=== PATIENT | female | born 1995 | race Caucasian/White ===

== ENCOUNTER 2019-01-12 00:18 | Emergency (ER) | payer OTHER, SELFPAY ==
[2019-01-12] VITALS (7 sets, daily range): BP systolic 138–148; BP diastolic 80–83; PULSE 80–84; RESP 16–18; TEMP 36.2; O2SAT 97–98; BMI 43.5
[2019-01-12 01:52] LABS: Absolute Lymphocyte Count 3.84 X10^3/ul (0.83-4.51); Absolute Neutrophil Count 5.3 X10^3/uL (2.0-7.7); Basophil# 0.05 X10^3/uL; Basophil% 0.5 % (0-1); Eosinophil# 0.44 X10^3/uL; Eosinophils% 4.3 % (0-5); Hematocrit 41.7 % (37-47); Hemoglobin 13.8 g/dl (12.0-15.0); Lymphocyte # 3.84 X10^3/ul (4.0); Lymphocyte % 37.8 % (19-41); Mean Corp Hgb Conc 33.1 g/gl (32-36); Mean Corpuscular Hgb 28.5 pg (27.0-32.0); Mean Corpuscular Volume 86.2 fL (81-99); Mean Platelet Vol. 10.4 fl (6.2-12.0); Monocyte# 0.57 X10^3/uL; Monocyte% 5.6 % (0-10); Neutrophil # 5.25 X10^3/uL (2.7-7.7); Neutrophil % 51.6 % (47-70); Platelet Count 378 K/mm3 (150-450); RBC Distribution Width CV 13.7 % (11.6-14.6); RBC Distribution Width SD 43.5 fl (35.1-43.9); Red Blood Count 4.84 M/mm3 (4.2-5.4); White Blood Count 10.2 K/mm3 (4.4-11.0)
[2019-01-12 01:53] LABS: POSITIVE COUNT NO; POSITIVE DIFFERENTIAL NO; POSITIVE MORPHOLOGY NO
[2019-01-12 02:03] LABS: Anion Gap 6 (5-15); BUN 19 mg/dL (7-18); BUN/Creat Ratio 20.2 RATIO (10-20); Calcium,Total 9.7 mg/dL (8.5-10.1); Chloride 103 mmol/L (98-107); Creatinine, Serum 0.94 mg/dL (0.55-1.02); EST Glomerular Filtration Rate 80 mL/min (>60); Est Glom Filt Rate - Afr Amer 97 mL/min (>60); Estimated Creatinine Clearance 88.63 ml/min; Glucose 89 mg/dL (74-106); Potassium 3.6 mmol/L (3.5-5.1); Sodium Level 137 mmol/L (136-145)
--- NOTE | 2019-01-12 02:03 | CT_ITS ---
HISTORY: HEADACHE, DIZZINESS TECHNIQUE: Multiple axial images were obtained of the brain without intravenous contrast. A radiation dose optimization technique was used for this scan. COMPARISON: None FINDINGS: # of images incl. paperwork: 242 Visualized portions of the paranasal sinuses and mastoid air cells are free of disease. Brain volume is normal. Chavez-white differentiation is preserved. No hydrocephalus. No acute ischemia. No acute intracranial hemorrhage. CT/Brain/Head without Contrast IMPRESSION: Normal. ASPECT 10. Individualized dose optimization techniques were used for this CT. at 0340 Reported and signed by: Ady Valenzuela MD Electronically Signed: Ady Valenzuela MD at 3:39 EDT Tel , Service support ,
[2019-01-12 02:08] LABS: Amphetamine Urine VISTA NEGATIVE (<1000 ng/mL); Barbiturate Urine VISTA NEGATIVE (< 200 ng/mL); Benzodiazepine Urine VISTA NEGATIVE (< 200 ng/mL); Cocaine Urine VISTA NEGATIVE (< 300 ng/mL); Ecstacy Urine VISTA NEGATIVE (< 500 ng/mL); Methadone Urine VISTA NEGATIVE (< 300 ng/mL); PCP Urine VISTA NEGATIVE (< 25 ng/mL); THC Urine VISTA NEGATIVE (< 50 ng/mL); Vista UDS pH Range 5
[2019-01-12 02:40] LABS: Internal QC Validated? YES +Cl - CLEAR BKGD; Pregnancy, Serum, hCG Quali. NEGATIVE Negative
--- NOTE | 2019-01-12 03:24 | ED.RN ---
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
--- NOTE | 2019-01-12 04:36 | ED.DCSUM_ITS ---
- ER Visit Summary Date of Service: 01/12/19 Chief Complaint: Suicidal ideation History of Present Illness: The patient is a 23 F who presents with suicidal ideation. She states that she had suicidal thoughts today. No plan. No specific exacerbating factors. She also complains of headache for a month and states that a prior CAT scan showed a spot on her brain. Physical Examination: Afebrile vitals unremarkable Moist mucous membrane Heart regular rate and rhythm Lungs clear Abdomen soft Alert and oriented Blunt affect she endorses suicidal thoughts without plan Test Results: CBC BMP unremarkable. negative. Tox and alcohol normal. CT head normal. Emergency Department Course and Treatment: Patient was evaluated by crisis who felt that she was appropriate for discharge with a safety plan and will follow up with her closely as an outpatient. Treatment Plan: [] Disposition: Discharge Impression: Suicidal ideation This note was generated with [employer] dictation software. It may contain incorrect words, spelling, and punctuation that were not noted in review of the chart prior to signing ED Disposition - Plan for ED Patient: Referrals: oJan Harry MD [Primary Care Provider] -
--- NOTE | 2019-01-12 04:38 | ED.DEP ---
ED Disposition - Plan for ED Patient: Instructions: Warning Signs of Suicide and What You Can Do, Recognizing Suicide Warning Signs in Yourself Referrals: Joan Harry MD [Primary Care Provider] - Counseling,Center [GROUP OF PHYSICIANS] -
--- NOTE | 2019-01-12 05:12 | ED.RN ---
PT SIGNED A SAFETY PLAN WITH MD CLARITA AWARE AND IS OK WITH DISCHARGING THE PT.
== END 2019-01-12 05:13 | disposition home or self-care (01) ==
LOC: ED 02:37
PROVIDERS: Emergency Provider Emergency Medicine; Family Provider Pediatrics; PCP Pediatrics
DX: R45.851 Suicidal ideations (principal); R51 Headache; F32.9 Major depressive disorder, single episode, unspecified; F41.9 Anxiety disorder, unspecified; E03.9 Hypothyroidism, unspecified; Z79.899 Other long term (current) drug therapy
CPT/HCPCS: 70450; 80048; 80307; 80320; 84703; 85025; 99283; G0480

== ENCOUNTER 2020-10-19 13:34 | Emergency (ER) | payer OTHER, SELFPAY ==
[2019-01-12 00:19] VITALS: BMI 43.5
[2020-10-19 13:36] VITALS: BP 149/82; PULSE 97; RESP 18; TEMP 36.4; O2SAT 98; BMI 47.2
--- NOTE | 2020-10-19 14:13 | ED.VIS.GI ---
History of Present Illness Chief Complaint: Abd Pain Informant: Patient - Abdominal Pain/Flank Pain Onset: Today Quality: Cramping - Nausea/Vomiting/Emesis GI Symptom: Nausea. Negative for: Vomiting - Diarrhea/Melena/Hematochezia GI Symptom: Diarrhea Narrative: Is a 24-year-old female with history of GERD, hypothyroid internal hemorrhoids and depression presenting with abdominal pain, nausea and diarrhea. Patient states around 1 AM she woke up with pain in her stomach. Patient points to her entire upper abdomen. She states the pain is worse when she tries to move and better at rest. She feels lightheaded from the pain when it is severe. She developed nausea is had 13 episodes of diarrhea. She states during one episode she did see some blood mixed in with her stool. States is bright red. No clots of blood noted. She took her daily medications but nothing else today. She states she has not eaten anything because when she eats drinks she has diarrhea patient states she never anything this bad before. She notes that she ate [employer] and [employer] food yesterday. Patient Nuys any radiation of pain. She denies any fever or chills. She denies any chest pain, shortness of breath or difficulty breathing. No sick contacts. Her last menstrual period was 1 week ago and she states she is not concerned for . No she has a follow-up appointment with her GI doctor in 1 week. Earlier this year she had EGD for concern for bleeding ulcer. She states there was no bleeding ulcer but there was some irritation on the scope. Past Medical History - Allergies and Home Meds Allergies/Adverse Reactions: Allergies No Known Allergies Allergy (Verified 01/12/19 00:23) Primary Care Physician: Joan Harry MD [NON-STAFF] - Past Medical History: - - Depression, hypothyroid, GERD Surgical History: noncontributory, - - EGD, wisdom tooth extraction x2, right carpal tunnel release, left Achilles tendon repair Smoking Status: Never smoker Review of Systems General: Denies: Chills, Fever, Sweats Eyes: Denies: Visual changes - bilaterally, Diplopia ENT: Denies: Rhinorrhea, Sore throat Cardiovascular: Denies: Chest pain, Palpitations Respiratory: Denies: Dyspnea, Cough, Dyspnea on exertion Gastrointestinal: Reports: Abdominal pain, Nausea, Diarrhea, Hematochezia. Denies: Vomiting, Melena Genitourinary: Denies: Dysuria, Hematuria, Frequency Musculoskeletal: Denies: Back pain, Extremity Pain Skin: Denies: Rash, Wounds Neurological: Denies: Headache, Weakness, Numbness Physical Exam Vital Signs/Narrative: Vital Signs Temp Pulse Resp BP Pulse Ox 10/19/20 13:36 97.5 F L 97 18 149/82 H 98 Inital Vital Signs reviewed: Yes General: Well nourished, Well developed, Obese, No Acute Distress Head: Normocephalic, Atraumatic Eyes: Perrl, EOMI ENT: No rhinorrhea, Dry mucous membranes Neck: Supple, Nontender Cardiovascular: Regular rate, Regular rhythm, No murmurs Respiratory: No distress, CTA bilaterally, Chest nontender Abdomen: Soft, Nontender, Nondistended, Hyperactive bowel sounds, - - No pain at McBurney's point. Negative for: Guarding, Rebound tenderness, Adames's sign Back: Nontender, Normal Inspection Extremities: Nontender, No edema Skin: Normal color, No rash Neurological: Alert, Oriented x3, Cranial nerves II-XII grossly intact, Normal Strength, Normal Sensation Psychological: Normal affect, Normal Mood Diagnostic/Tx/Re-eval Laboratory Data 10/19/20 10/19/20 10/19/20 13:46 13:46 14:28 WBC 6.3 RBC 5.10 Hgb 14.2 Hct 43.7 MCV 85.7 MCH 27.8 MCHC 32.5 RDW Std Deviation 41.6 RDW Coeff of Ry 13.4 Plt Count 411 MPV 9.9 Immature Gran % (Auto) 0.600 Neut % (Auto) 53.9 Lymph % (Auto) 33.9 Williams % (Auto) 7.2 Eos % (Auto) 3.8 Baso % (Auto) 0.6 Absolute Neuts (auto) 3.4 Absolute Lymphs (auto) 2.13 Nucleated RBC % 0 Sodium 137 Potassium 3.9 Chloride 105 Carbon Dioxide 25.0 Anion Gap 7 BUN 9 Creatinine 0.79 Estim Creat Clear Calc 108.62 Est GFR (MDRD) Af Amer 116 Est GFR (MDRD) Non-Af 96 BUN/Creatinine Ratio 11.4 Glucose 113 H Lactic Acid Calcium 9.3 Total Bilirubin 0.30 Direct Bilirubin 0.09 AST 23 ALT 42 Alkaline Phosphatase 75 Total Protein 8.3 H Albumin 3.8 Globulin 4.5 H Lipase 60 L Urine Color Yellow Urine Clarity Clear Urine pH 6.5 Ur Specific Henning 1.010 Urine Protein Negative Urine Glucose (UA) Normal Urine Ketones Negative Urine Occult Blood Negative Urine Nitrite Negative Urine Bilirubin Negative Urine Urobilinogen Normal Ur Leukocyte Esterase Negative Urine RBC 0 SEEN Urine WBC 0 SEEN Ur Squamous Epith Cells 0 SEEN Urine Bacteria 1+ Urine Mucus 0 SEEN Urine Test Negative 10/19/20 14:35 WBC RBC Hgb Hct MCV MCH MCHC RDW Std Deviation RDW Coeff of Ry Plt Count MPV Immature Gran % (Auto) Neut % (Auto) Lymph % (Auto) Williams % (Auto) Eos % (Auto) Baso % (Auto) Absolute Neuts (auto) Absolute Lymphs (auto) Nucleated RBC % Sodium Potassium Chloride Carbon Dioxide Anion Gap BUN Creatinine Estim Creat Clear Calc Est GFR (MDRD) Af Amer Est GFR (MDRD) Non-Af BUN/Creatinine Ratio Glucose Lactic Acid 1.9 Calcium Total Bilirubin Direct Bilirubin AST ALT Alkaline Phosphatase Total Protein Albumin Globulin Lipase Urine Color Urine Clarity Urine pH Ur Specific Henning Urine Protein Urine Glucose (UA) Urine Ketones Urine Occult Blood Urine Nitrite Urine Bilirubin Urine Urobilinogen Ur Leukocyte Esterase Urine RBC Urine WBC Ur Squamous Epith Cells Urine Bacteria Urine Mucus Urine Test - Medical Decision Making Evaluated for 1 day of abdominal discomfort, nausea and diarrhea. She appears nontoxic in no acute distress. She did have blood in 1 bowel movement however she does have a history of hemorrhoids. Her vital signs are normal. Her lab work is largely unremarkable. She is not pain out of proportion. Her abdominal exam is benign. I do not suspect an acute gallbladder pathology based on physical exam.Urinalysis is not consistent with dehydration as a ketones are normal. Her kidney function is normal. Patient is treated with IV Zofran, Pepcid, fluids and oral Bentyl. On reevaluation she states she feels much better. Patient be discharged home with a prescription for Zofran and Bentyl. She does mention to me that she is not been sleeping the last few nights. I am not sure how this is related but I think patient is still stable for discharge. Patient will follow up with her GI doctor. Patient is counseled on signs and symptoms requiring return to the emergency room. Patient verbalizes agreement and understand this plan. Patient discharged home in stable and improved condition. ED Disposition - Plan for ED Patient: Disposition: Home or Assisted Living Diagnosis: Abdominal pain of unknown cause, Diarrhea Instructions: ED Diarrhea, Unknown Cause, ED Abdominal Pain Unkn Cause Fem Prescriptions: Dicyclomine HCl [Bentyl] 20 mg PO TIDAC #20 capsule Transmission Status: Pending to [id number] Ondansetron [Zofran Odt] 4 mg PO Q8H PRN PRN #10 tablet PRN Reason: Nausea Transmission Status: Pending to [id number] Referrals: Joan Harry MD [NON-STAFF] - Additional Instructions: Try to eat light over the next few days to rest your stomach. Drink plenty of fluids. Follow-up with your GI doctor. Return with worsening symptoms.
[2020-10-19 14:33] LABS: Mucous, Urine 0 SEEN /hpf (<or=2+); Red Blood Cells-Urine 0 SEEN /hpf (0-5); Squamous Epithelial Cells - UA 0 SEEN /hpf (5-10); White Blood Cells 0 SEEN /hpf (0-5)
[2020-10-19 14:36] LABS: Color, Urine Yellow (Yellow); Glucose, Dipstick Normal (Normal); Ketone-Dipstick Negative (Negative); Leukocyte Esterase-Dipstick Negative /ul (Negative); Nitrite-Dipstick Negative (Negative); Occult Blood-Urine Negative /ul (Negative); Protein-Dipstick Negative (Negative); Urine Bilirubin Dipstick Negative (Negative); Urine Clarity Clear (Clear); Urine Urobilinogen Normal (Normal); Urine pH 6.5 (5.0 - 8.0)
[2020-10-19 14:36] LABS: Absolute Lymphocyte Count 2.13 X10^3/uL (0.83-4.51); Absolute Neutrophil Count 3.4 X10^3/uL (2.0-7.7); Basophil# 0.04 X10^3/uL; Basophil% 0.6 % (0-1); Eosinophil# 0.24 X10^3/uL; Eosinophils% 3.8 % (0-5); Hematocrit 43.7 % (37-47); Hemoglobin 14.2 g/dL (12.0-15.0); Lymphocyte # 2.13 X10^3/ul (0.83-4.51); Lymphocyte % 33.9 % (19-41); Mean Corp Hgb Conc 32.5 g/dL (32-36); Mean Corpuscular Hgb 27.8 pg (27.0-32.0); Mean Corpuscular Volume 85.7 fL (81-99); Mean Platelet Vol. 9.9 fl (6.2-12.0); Monocyte# 0.45 X10^3/uL; Monocyte% 7.2 % (0-10); NRBC Flagged by Analyzer 0 % (0-5); Neutrophil # 3.38 X10^3/uL (2.7-7.7); Neutrophil % 53.9 % (47-70); Platelet Count 411 K/mm3 (150-450); RBC Distribution Width CV 13.4 % (11.6-14.6); RBC Distribution Width SD 41.6 fl (35.1-43.9); White Blood Count 6.3 K/mm3 (4.4-11.0)
[2020-10-19] MEDS: 0.9% Normal Saline 1,000 ML 1000 ML IV (14:37)
[2020-10-19] MEDS: Ondansetron 4 MG/2 ML Vial IV (14:37)
[2020-10-19] MEDS: Famotidine 200 MG/20 ML MDV 20 MG in 0.9% Normal Saline (Pres. free 8 ML 300 MG IV (14:41)
[2020-10-19] MEDS: Dicyclomine 10 MG Capsule 20 MG PO (14:41)
[2020-10-19 14:43] LABS: Bacteria 1+ /hpf (None Seen); Internal QC Validated? YES +Cl - CLEAR BKGD; Pregnancy, Urine Negative Negative; Record Kit Lot#,Urine Preg 42100
[2020-10-19 14:48] LABS: AST(SGOT) 23 U/L (15-37); Alanine Aminotransfer ALT/SGPT 42 U/L (13-56); Albumin, Serum 3.8 g/dL (3.2-5.0); Alkaline Phosphatase 75 U/L (45-117); Anion Gap 7 (5-15); BUN 9 mg/dL (7-18); BUN/Creat Ratio 11.4 RATIO (10-20); Bilirubin, Direct 0.09 mg/dL (0.00-0.30); Calcium,Total 9.3 mg/dL (8.5-10.1); Chloride 105 mmol/L (98-107); Creatinine, Serum 0.79 mg/dL (0.55-1.02); EST Glomerular Filtration Rate 96 mL/min (>60); Est Glom Filt Rate - Afr Amer 116 mL/min (>60); Estimated Creatinine Clearance 108.62 ml/min; Globulin 4.5 g/dL (2.2-4.2); Glucose 113 mg/dL (74-106); Lipase 60 U/L (73-393); Potassium 3.9 mmol/L (3.5-5.1); Protein, Total 8.3 g/dL (6.4-8.2); Sodium Level 137 mmol/L (136-145)
[2020-10-19 15:05] LABS: Lactic Acid 1.9 mmol/L (0.4-1.9)
[2020-10-19 16:00] VITALS: BP 128/72; PULSE 63; RESP 16; O2SAT 98
== END 2020-10-19 16:18 | disposition home or self-care (01) ==
PROVIDERS: Emergency Provider Emergency Medicine
DX: R10.9 Unspecified abdominal pain (principal); R19.7 Diarrhea, unspecified; R11.0 Nausea; E03.9 Hypothyroidism, unspecified; E66.9 Obesity, unspecified; Z68.42 Body mass index [BMI] 45.0-49.9, adult; K21.9 Gastro-esophageal reflux disease without esophagitis; F32.9 Major depressive disorder, single episode, unspecified; Z87.19 Personal history of other diseases of the digestive system; Z79.899 Other long term (current) drug therapy
CPT/HCPCS: 80048; 80076; 81001; 81025; 83605; 83690; 85025; 96361; 96374; 96375; 99285; J2405; J3490

== ENCOUNTER 2020-10-25 14:56 | Emergency (ER) | payer OTHER, SELFPAY ==
[2020-10-25 14:56] VITALS: BP 148/83; PULSE 83; RESP 18; TEMP 36.3; O2SAT 97; BMI 45.8
--- NOTE | 2020-10-25 15:05 | US_ITS ---
STUDY: ABDOMINAL ULTRASOUND - RIGHT UPPER QUADRANT REASON FOR VISIT: Female, 24 years old PAIN clinical Adames sign TECHNIQUE: Ultrasound evaluation of the right upper quadrant was performed with real-time and static torres-scale imaging. TECHNICAL QUALITY: Adequate. COMPARISON: None. FINDINGS: Liver: The liver measures 16.5 cm. There is normal echogenicity of the liver. The bile ducts are within normal limits. There is hepatic color flow. The direction of portal flow is hepatopetal. There is no demonstrated mass lesion. Gallbladder: Normal distended gallbladder. The gallbladder wall measures 3 mm. There is a negative sonographic Adames''s sign. There is no pericholecystic fluid. There are no gallstones. Common Bile Duct (C.B.D.): The common bile duct measures 6 mm. Pancreas: There is only visualization of the mid body of pancreas. The head and tail are not seen on the current study. There is normal echogenicity of the pancreas. There is no demonstrated pancreatic mass or cyst. Right Kidney: Normal size of the right kidney. The right kidney measures 12.1 x 4.2 x 4.4 cm. Normal renal cortex. The right cortex measures 1.5 cm. There is no demonstrated renal mass or cyst. There is no right hydronephrosis. US/Gallbladder IMPRESSION: 1. No demonstrated acute or significant abnormality. Only the body of the pancreas was seen on this study which is normal. Electronically Signed: Max Roberson MD at 16:52 EDT , Service support ,
--- NOTE | 2020-10-25 15:07 | ED.VIS.GI ---
HPI HPI - GI History of Present Illness Chief Complaint: Abd Pain Informant: patient Abdominal Pain/Flank Pain Onset: Days (Abrupt onset October 19) Context: Sudden Onset Timing: Continuous Quality: Aching and Cramping Location: RUQ Current Severity: Mild Maximum Severity: Severe Worsened by: Food Relieved by: Nothing Nausea/Vomiting/Emesis GI Symptom: Positive for Nausea; Negative for Vomiting Onset: Days Severity: Moderate Diarrhea/Melena/Hematochezia GI Symptom: Positive for Diarrhea Onset: Days Stool Quality: Positive for Loose (Does not look to determine color) Severity: Moderate Associated Symptoms Associated Symptoms: Negative for Dysuria, Frequency and Hematuria Narrative Narrative: Patient is a 24-year-old female whose last normal menstrual period was 3 weeks ago. She presents with right-sided abdominal pain. She was seen last with the onset. Work-up at that time revealed no obvious etiology. Mother states that she had black stools 2 months ago. When she had the EGD performed no abnormality was noted. Patient does report nausea without vomiting. She does report diarrhea. She does not know the color or if there is any blood or mucus because she does not look. She denies dysuria, frequency, urgency or hematuria. Her last normal menstrual period was 3 weeks ago. She does have history of polycystic ovarian disease. She denies history of endometriosis. She denies history of renal ureterolithiasis. She denies cardiac or respiratory symptoms. She denies fever or chills. She denies HEENT symptoms. Mother has history of ulcerative colitis and is status post cholecystectomy. Prior similar symptoms: Yes Recent Illness/Hospitalization: Yes PFSH [facility] Medical History (Updated 10/25/20 @ 18:[address] Nomi Cast MD) Hypothyroidism Melena Polycystic ovarian syndrome Home Medications levothyroxine 50 mcg PO DAILY 01/12/19 [History Last Taken Unknown] norgestrel-ethinyl estradiol 1 ea PO DAILY 01/12/19 [History Last Taken Unknown] dicyclomine 20 mg PO TIDAC #20 capsule 10/19/20 [Rx Last Taken Unknown] ondansetron 4 mg PO Q8H PRN PRN #10 tablet 10/19/20 [Rx Last Taken Unknown] desvenlafaxine 100 mg PO DAILY 10/25/20 [History Last Taken Unknown] hydrocodone-acetaminophen 1 tab PO Q6H PRN PRN 3 Days #10 tablet 10/25/20 [Rx Last Taken Unknown] Allergy/AdvReac Type Severity Reaction Status Date / Time No Known Allergies Allergy Verified 10/25/20 14:58 Social History Smoking Status: Never smoker ROS ROS ED Constitutional Constitutional ED: Denies chills, fever(s), subjective, sweats or weight loss ENT ENT ED: Denies ear pain, rhinorrhea or sore throat Cardiovascular Cardiovascular: Denies chest pain or palpitations Respiratory/Chest Respiratory/Chest: Denies cough, dyspnea or dyspnea on exertion Gastrointestinal Gastrointestinal: Reports abdominal pain, diarrhea and nausea; Denies constipation, melena or vomiting Genitourinary Genitourinary ED: Denies dysuria, hematuria or urinary frequency Musculoskeletal Musculoskeletal: Denies arthralgias, back pain, myalgias or neck pain Integumentary Denies rash Neurologic Neurologic: Denies headache(s) or weakness Psychiatric Psychiatric: Reports depression Endocrine Endocrinology: Denies polydipsia, polyphagia or polyuria Hematologic/Lymphatic Hematologic/Lymphatic: Denies easy bleeding or easy bruising Allergic/Immunologic Allergic/Immunologic ED: Denies urticaria EXAM Physical Exam Const Vital Signs: 10/25/20 14:56 10/25/20 16:22 Temperature 97.4 F L 97.6 F L Temperature Source Temporal Temporal Pulse Rate 83 70 Respiratory Rate 18 18 Blood Pressure 148/83 H 133/60 H Blood Pressure Mean 104 84 Pulse Ox 97 98 Oxygen Delivery Method Room Air Room Air Positive well nourished, well developed and obese General Appearance ED: well developed; Negative for pallor Nutritional Appearance: obese HEENT Reports dry mucous membranes normocephalic and atraumatic Mouth ED: Yes dry mucous membranes Mouth: dry mucous membranes Eyes PERRL and EOMs intact bilaterally General Eye ED: Negative for pale conjunctiva or scleral icterus Neck no lymphadenopathy, supple and no JVD General: Negative for tenderness Chest Wall Chest Narrative: There is no chest wall tenderness to palpation. Resp normal respiratory effort and clear to auscultation bilaterally Cardio regular rate, regular rhythm, S1 normal heart sound, S2 normal heart sound and no murmurs GI non-distended and no masses Palpation: soft and tender epigastric, RUQ, McBurney's point, periumbilical, suprapubic and Adames's sign; Negative for rebound tenderness present Back/Spine no CVA tenderness Thoracic Spine / Upper Back: Negative for thoracic spinal tenderness Lumbar Spine / Lower Back: Negative for lumbar spinal tenderness Extremity full ROM General Extremety ED: Negative for edema or tenderness General Extremity: Negative for edema Neuro CN's II-XII intact bilaterally, moves all extremities and no sensory deficits noted Sensorium / Orientation: alert, oriented to person, oriented to place and oriented to time Motor Exam: strength 5/5 throughout Psych mental status grossly normal and thought process normal Skin no wounds General Skin Exam: Negative for jaundice or pallor Lesions: no lesions Rashes: no rashes MDM MDM MDM Narrative Medical decision making narrative: With significant pain in the right upper quadrant and a clinical Adames sign and family history of cholelithiasis and the fact that patient has not eaten since 8 PM last evening and ultrasound was ordered to evaluate for biliary colic due to cholelithiasis versus cholecystitis. Appropriate labs were obtained which include a CBC to assess white count and H&H. Comprehensive metabolic panel to assess electrolytes, total bili and lipase to evaluate for pancreatitis. Patient was medicated with Zofran and morphine. Lab Data Labs: Laboratory Results - last 24 hr 10/25/20 15:25 Sodium 137 Potassium 3.3 L Chloride 104 Carbon Dioxide 26.0 Anion Gap 7 BUN 9 Creatinine 0.77 Estim Creat Clear Calc 111.44 Est GFR (MDRD) Af Amer 119 Est GFR (MDRD) Non-Af 98 BUN/Creatinine Ratio 11.7 Glucose 93 Calcium 9.0 Total Bilirubin 0.40 AST 49 H ALT 71 H Alkaline Phosphatase 71 Total Protein 7.9 Albumin 3.6 Globulin 4.3 H Albumin/Globulin Ratio 0.8 L Lipase 65 L Radiography Diagnostic Testing: Radiology Impression Gallbladder Ultrasound 10/25/20 15:05 IMPRESSION: 1. No demonstrated acute or significant abnormality. Only the body of the pancreas was seen on this study which is normal. Electronically Signed: Max Roberson MD at 16:52 EDT , Service support , Discharge Plan Triage Chief Complaint: Abd Pain ED Provider: Nomi Cast Dx/Rx/DC Orders Clinical Impression: Intractable right upper quadrant abdominal pain, Nausea Instructions: ED Abdominal Pain Unkn Cause Fem Prescriptions: New hydrocodone-acetaminophen [hydrocodone-acetaminophen] 1 TABLET tablet 1 tab PO Q6H PRN PRN (Reason: Pain) 3 Days Qty: 10 RF: 0 No Action levothyroxine 50 MCG tablet 50 mcg PO DAILY RF: 0 norgestrel-ethinyl estradiol 1 EACH tablet 1 ea PO DAILY RF: 0 dicyclomine 10 MG capsule 20 mg PO TIDAC Qty: 20 RF: 0 ondansetron 4 MG tablet 4 mg PO Q8H PRN PRN (Reason: Nausea) Qty: 10 RF: 0 desvenlafaxine 100 mg tablet extended release 24 hr 100 mg PO DAILY RF: 0 Primary Care Provider: Phoebe Christian NP Referrals: Phoebe Christian [employer], [employer] [Primary Care Provider] - 3-5 Days (With right upper quadrant pain will need outpatient HIDA scan) Disposition Disposition: Home, self care
[2020-10-25] MEDS: 0.9% Normal Saline 1,000 ML 125 ML IV (15:26)
[2020-10-25] MEDS: Ondansetron 4 MG/2 ML Vial IV (15:26)
[2020-10-25] MEDS: Morphine 4 MG/ML Syringe IV (15:26)
[2020-10-25 15:58] LABS: Albumin, Serum 3.6 g/dL (3.2-5.0); BUN 9 mg/dL (7-18); BUN/Creat Ratio 11.7 RATIO (10-20); Creatinine, Serum 0.77 mg/dL (0.55-1.02); EST Glomerular Filtration Rate 98 mL/min (>60); Est Glom Filt Rate - Afr Amer 119 mL/min (>60); Estimated Creatinine Clearance 111.44 ml/min; Globulin 4.3 g/dL (2.2-4.2); Glucose 93 mg/dL (74-106); Protein, Total 7.9 g/dL (6.4-8.2)
[2020-10-25 15:59] LABS: ALB/GLOB Ratio 0.8 RATIO (0.9-2.4); AST(SGOT) 49 U/L (15-37); Alanine Aminotransfer ALT/SGPT 71 U/L (13-56); Alkaline Phosphatase 71 U/L (45-117); Anion Gap 7 (5-15); Chloride 104 mmol/L (98-107); Lipase 65 U/L (73-393); Potassium 3.3 mmol/L (3.5-5.1); Sodium Level 137 mmol/L (136-145)
[2020-10-25 16:22] VITALS: BP 133/60; PULSE 70; RESP 18; TEMP 36.4; O2SAT 98
[2020-10-25] MEDS: Mag Hydrox/Al Hydrox/Simeth 30 ML UDC PO (17:42)
[2020-10-25 18:41] VITALS: BP 140/69; PULSE 70; RESP 15; O2SAT 99
== END 2020-10-25 19:08 | disposition home or self-care (01) ==
PROVIDERS: Emergency Provider Emergency Medicine; PCP Nurse Practitioner Family
DX: R10.11 Right upper quadrant pain (principal); R11.0 Nausea; R19.7 Diarrhea, unspecified; E66.9 Obesity, unspecified; Z68.42 Body mass index [BMI] 45.0-49.9, adult; E03.9 Hypothyroidism, unspecified; E28.2 Polycystic ovarian syndrome; Z79.899 Other long term (current) drug therapy
CPT/HCPCS: 76705; 80048; 80053; 83690; 96361; 96374; 96375; 99283; J7030; A4216; J2405

== ENCOUNTER → 2020-11-06 14:59 | Outpatient (CLI) | payer OTHER, SELFPAY ==
[2020-10-25 14:56] VITALS: BMI 45.8
[2020-11-06 16:39] LABS: T4 Free Direct 1.12 ng/dL (0.76-1.46); Thyroid Stim Hormone (TSH) 1.05 uIU/mL (0.358-3.74)
[2020-11-07 16:27] LABS: T4 Total, Thyroxin 13.6 ug/dL (4.8-13.9)
[2020-11-08 16:46] LABS: Deamidated Gliadin IgA 4 units (0-19); Deamidated Gliadin IgG 3 units (0-19); Immunoglobulin A 169 mg/dL (87-352); t-Transglutaminase IgA <2 U/mL (0-3)
== END ==
PROVIDERS: PCP Nurse Practitioner Family; Referring Provider Internal Medicine Gastroenterology; Visit Provider Internal Medicine Gastroenterology
DX: R10.811 Right upper quadrant abdominal tenderness (principal); K58.0 Irritable bowel syndrome with diarrhea; R19.7 Diarrhea, unspecified; R10.9 Unspecified abdominal pain; E03.9 Hypothyroidism, unspecified
CPT/HCPCS: 36415; 82784; 83516; 84436; 84439; 84443

== ENCOUNTER → 2020-11-28 10:19 | Outpatient (CLI) | payer OTHER, SELFPAY ==
--- NOTE | 2020-11-28 10:24 | NM_ITS ---
CLINICAL: 25-year-old female with reported history of abdominal pain. RADIONUCLIDE HEPATOBILIARY SCINTIGRAPHY COMPARISON: Abdominal ultrasound report 10/25/2020 FINDINGS: Following the intravenous administration of 5.3 mCi of 99m Tc Mebrofenin, hepatobiliary images reveal: 1. Relatively prompt and homogeneous radiopharmaceutical concentration is noted by a normal sized liver. No parenchymal defects are identified. 2. Gallbladder activity is identified at 10 minutes post radiopharmaceutical administration. 3. Small intestinal tract is observed at 30 minutes following tracer injection. 4. Washout of the radiopharmaceutical by the hepatic parenchyma appears qualitatively normal. Cholecystokinin (0.02 ug/kg) was administered intravenously over a 30-minute period. The post CCK gallbladder ejection fraction calculated at 20 minutes following Cholecystokinin administration was noted to be 67.0 % (normal greater than 35%). During 30 minutes of post CCK imaging, there is no scintigraphic evidence of reflux of the radiotracer into the common hepatic duct or refilling of the gallbladder. NM/Hepatobilliary Img w/Pharm Int IMPRESSION: 1. NORMAL 99m Tc Mebrofenin hepatobiliary imaging examination with Cholecystokinin. A. A gallbladder ejection fraction calculated to be greater than 35% following the administration of Cholecystokinin makes the probability of functional hepatobiliary disease (gallbladder and/or sphincter of Oddi dyskinesia) and/or organic hepatobiliary disease (chronic acalculous cholecystitis and/or cystic duct syndrome) to be low. (Gavino Bryant et al, Journal of Nuclear Medicine 32:1695, 1991). Electronically Signed: Frank Lam DO at 21:37 EDT Tel , Service support ,
== END ==
PROVIDERS: Referring Provider Internal Medicine Gastroenterology; Visit Provider Internal Medicine Gastroenterology
DX: R10.9 Unspecified abdominal pain (principal)
CPT/HCPCS: 78227; A9537; J2805

== ENCOUNTER 2020-12-25 01:24 | Emergency (ER) | payer OTHER, SELFPAY ==
[2020-12-25 01:25] VITALS: BP 145/66; PULSE 94; RESP 18; TEMP 36.8; O2SAT 98; BMI 47.0
[2020-12-25 01:37] LABS: Absolute Lymphocyte Count 3.69 X10^3/uL (0.83-4.51); Basophil# 0.06 X10^3/uL; Basophil% 0.5 % (0-1); Eosinophil# 0.31 X10^3/uL; Eosinophils% 2.4 % (0-5); Hematocrit 41.4 % (37-47); Hemoglobin 13.5 g/dL (12.0-15.0); Lymphocyte # 3.69 X10^3/ul (0.83-4.51); Lymphocyte % 28.4 % (19-41); Mean Corp Hgb Conc 32.6 g/dL (32-36); Mean Corpuscular Hgb 27.7 pg (27.0-32.0); Mean Platelet Vol. 9.7 fl (6.2-12.0); Monocyte# 0.82 X10^3/uL; Monocyte% 6.3 % (0-10); NRBC Flagged by Analyzer 0 % (0-5); Neutrophil # 7.97 X10^3/uL (2.7-7.7); Neutrophil % 61.2 % (47-70); Platelet Count 443 K/mm3 (150-450); RBC Distribution Width CV 13.6 % (11.6-14.6); Red Blood Count 4.87 M/mm3 (4.2-5.4)
--- NOTE | 2020-12-25 01:38 | EDS_ITS ---
HPI History of Present Illness Chief Complaint: Abd Pain Informant: patient Onset/Context/Timing Onset: Weeks Context: Sudden Onset Timing: Continuous (Pain has been continuous since December 20. Pain started December 18) Quality: Sharp dull Location: Right upper quadrant Current Severity: Moderate Maximum Severity: Severe Worsened by: Food Relieved by: Nothing Associated Symptoms Associated Symptoms: Nausea Narrative Narrative: Patient is a 25-year-old woman who was diagnosed 1 year ago with STD, chlamydia. Patient was seen several times for right upper quadrant pain. She had a significant work-up including ultrasound, MRCP and HIDA scan, which were all negative. Patient denies fever, chills night sweats. Patient denies back or flank pain. She denies dysuria, frequency, urgency or hematuria. She denies vaginal bleeding or vaginal discharge. Patient states she was treated for the chlamydia infection. She has had a negative follow-up test. Prior similar symptoms: Yes Recent Illness/Hospitalization: Yes [facility] Medical History (Updated 12/25/20 @ 03:[address] Nomi Cast MD) Chlamydia infection GERD (gastroesophageal reflux disease) Hypothyroidism Melena Polycystic ovarian syndrome Home Medications levothyroxine 50 mcg PO DAILY 01/12/19 [History Last Taken Unknown] norgestrel-ethinyl estradiol 1 ea PO DAILY 01/12/19 [History Last Taken Unknown] dicyclomine 20 mg PO TIDAC #20 capsule 10/19/20 [Rx Last Taken Unknown] ondansetron 4 mg PO Q8H PRN PRN #10 tablet 10/19/20 [Rx Last Taken Unknown] desvenlafaxine 100 mg PO DAILY 10/25/20 [History Last Taken Unknown] hydrocodone-acetaminophen 1 tab PO Q6H PRN PRN 3 Days #10 tablet 10/25/20 [Rx Last Taken Unknown] Allergy/AdvReac Type Severity Reaction Status Date / Time No Known Allergies Allergy Verified 12/25/20 01:31 Social History (Updated 12/25/20 @ 01:[address] Nomi Cast MD) household members: none Smoking Status: Never smoker alcohol intake: never substance use type: does not use ROS ROS ED Constitutional Constitutional ED: Denies chills, fever(s), subjective, sweats or weight loss Eyes Eyes: Denies blurry vision or change in vision ENT ENT ED: Denies ear pain, rhinorrhea or sore throat Cardiovascular Cardiovascular: Denies chest pain or palpitations Respiratory/Chest Respiratory/Chest: Denies dyspnea or dyspnea on exertion Gastrointestinal Gastrointestinal: Reports abdominal pain and nausea; Denies constipation, diarrhea, melena or vomiting Genitourinary Genitourinary ED: Denies dysuria, hematuria or urinary frequency Musculoskeletal Musculoskeletal: Reports back pain and other Details: Patient states she has chronic low back pain due to being overweight ; Denies arthralgias, myalgias or neck pain Integumentary Denies rash Neurologic Neurologic: Denies paresthesias or weakness EXAM Physical Exam Const Vital Signs: 12/25/20 01:25 Temperature 98.2 F Temperature Source Oral Pulse Rate 94 Respiratory Rate 18 Blood Pressure 145/66 H Blood Pressure Mean 92 Pulse Ox 98 Oxygen Delivery Method Room Air Positive well nourished, well developed and obese General Appearance ED: well developed Nutritional Appearance: obese HEENT Reports TM's clear and moist mucous membranes HEENT Narrative: Nares patent. Posterior pharynx unremarkable. Tympanic Membrane ED: Yes TM's clear Eyes PERRL and EOMs intact bilaterally General Eye ED: Negative for pale conjunctiva or scleral icterus Neck no lymphadenopathy, supple and no JVD Resp normal respiratory effort and clear to auscultation bilaterally Effort and Inspection: Negative for pain with movement Cardio regular rate, regular rhythm, S1 normal heart sound, S2 normal heart sound and no murmurs GI non-distended and no masses; Negative for hepatosplenomegaly GI Narrative: Negative clinical Adames sign Inspection: Negative for abdominal distention Auscultation: normoactive bowel sounds Palpation: soft and tender; Negative for guarding or rebound tenderness present Back/Spine no CVA tenderness Thoracic Spine / Upper Back: Negative for paraspinal muscle tenderness Extremity normal to inspection Neuro oriented x3, CN's II-XII intact bilaterally and no sensory deficits noted Sensorium / Orientation: alert Motor Exam: strength 5/5 throughout Psych mental status grossly normal Skin no rashes or lesions noted and no wounds MDM MDM Lab Data Attestation: I reviewed the patient's lab results. Lab results narrative: Patient's had a significant work-up to rule out biliary/hepatic disease. In light of past history of sexually transmitted disease i.e. 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 Will obtain basic blood work. If there is no significant abnormality we will have her follow-up with her marketing senior recruiter. Chest x-ray was normal. 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 Labs: Laboratory Results - last 24 hr 12/25/20 12/25/20 01:25 01:25 WBC 13.0 H RBC 4.87 Hgb 13.5 Hct 41.4 MCV 85.0 MCH 27.7 MCHC 32.6 RDW Std Deviation 42.0 RDW Coeff of Ry 13.6 Plt Count 443 MPV 9.7 Immature Gran % (Auto) 1.200 H Neut % (Auto) 61.2 Lymph % (Auto) 28.4 [place] % (Auto) 6.3 Eos % (Auto) 2.4 Baso % (Auto) 0.5 Absolute Neuts (auto) 8.0 H Absolute Lymphs (auto) 3.69 Nucleated RBC % 0 Total Bilirubin 0.40 Direct Bilirubin 0.13 AST 28 ALT 24 Alkaline Phosphatase 62 Total Protein 8.3 H Albumin 3.9 Globulin 4.4 H Lipase 65 L Radiography Chest X-Ray - ED: 2 View, Heart, Lungs, Mediastinum, Bony Structures and No Acut e Disease Diagnostic Testing: Radiology Impression Chest X-Ray 12/25/20 02:46 IMPRESSION: No radiographic evidence of acute cardiopulmonary disease. 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 Instructions: Abdominal Pain Prescriptions: No Action levothyroxine 50 MCG tablet 50 mcg PO DAILY RF: 0 norgestrel-ethinyl estradiol 1 EACH tablet 1 ea PO DAILY RF: 0 dicyclomine 10 MG capsule 20 mg PO TIDAC Qty: 20 RF: 0 ondansetron 4 MG tablet 4 mg PO Q8H PRN PRN (Reason: Nausea) Qty: 10 RF: 0 desvenlafaxine 100 mg tablet extended release 24 hr 100 mg PO DAILY RF: 0 hydrocodone-acetaminophen [hydrocodone-acetaminophen] 1 TABLET tablet 1 tab PO Q6H PRN PRN (Reason: Pain) 3 Days Qty: 10 RF: 0 Primary Care Provider: Phoebe Christian NP Referrals: Phoebe Christian NP, [facility] [Primary Care Provider] - Activity Restrictions/Additional Instructions: 1. Since you have had a significant work-up to evaluate your liver, gallbladder etc. and you have a prior history of chlamydia suspect the cause of your right upper quadrant pain is Vignesh-Mark Luis. Recommend you contact your marketing senior recruiter for follow-up. Disposition Disposition: Home, Self Care
[2020-12-25] MEDS: Ketorolac 15 MG/ML Vial IV (01:43)
[2020-12-25] MEDS: Ondansetron 4 MG/2 ML Vial IV (01:43)
[2020-12-25 01:50] LABS: AST(SGOT) 28 U/L (15-37); Alanine Aminotransfer ALT/SGPT 24 U/L (13-56); Albumin, Serum 3.9 g/dL (3.2-5.0); Alkaline Phosphatase 62 U/L (45-117); Bilirubin, Direct 0.13 mg/dL (0.00-0.30); Globulin 4.4 g/dL (2.2-4.2); Lipase 65 U/L (73-393); Protein, Total 8.3 g/dL (6.4-8.2)
--- NOTE | 2020-12-25 02:46 | RAD_ITS ---
EXAM: XR CHEST, 2 VIEWS : 1995 CLINICAL INDICATION: Pain right lower lung field TECHNIQUE: Frontal and lateral views of the chest. This report was created using [employer] report generation technology. COMPARISON: None. FINDINGS: LUNGS AND PLEURAL SPACES: Unremarkable. No consolidation or edema. No pneumothorax. No effusion. HEART: Unremarkable. Cardiac silhouette not enlarged. MEDIASTINUM: Central airways and mediastinal contour are unremarkable. BONES/JOINTS: Unremarkable. SOFT TISSUES: Unremarkable. RAD/Chest PA and Lateral IMPRESSION: No radiographic evidence of acute cardiopulmonary disease. at 0321 Reported and signed by: Vernon Villalobos MD Electronically Signed: Vernon Villalobos MD at 3:20 EDT Tel , Service support ,
[2020-12-25 03:47] VITALS: RESP 14
== END 2020-12-25 03:47 | disposition home or self-care (01) ==
PROVIDERS: Emergency Provider Emergency Medicine; PCP Nurse Practitioner Family
DX: A74.81 Chlamydial peritonitis (principal); E03.9 Hypothyroidism, unspecified; E28.2 Polycystic ovarian syndrome; K21.9 Gastro-esophageal reflux disease without esophagitis; E66.9 Obesity, unspecified; Z68.42 Body mass index [BMI] 45.0-49.9, adult; Z79.899 Other long term (current) drug therapy
CPT/HCPCS: 71046; 80076; 83690; 85025; 96374; 96375; 99283; A4216; J2405

== ENCOUNTER 2021-11-13 19:27 | Emergency (ER) | payer OTHER, SELFPAY ==
[2021-11-13 19:28] VITALS: BP 166/96; PULSE 122; RESP 14; TEMP 36.6; O2SAT 98; BMI 50.1
--- NOTE | 2021-11-13 20:13 | ED.VIS.GI ---
HPI HPI - GI History of Present Illness Chief Complaint: Nausea/Vomiting/Diarrhea Informant: patient Abdominal Pain/Flank Pain Current Severity: Gone Worsened by: Nothing Relieved by: Nothing Nausea/Vomiting/Emesis GI Symptom: Positive for Nausea Quality: Negative for Blood streaks, Coffee ground and Hematemesis Diarrhea/Melena/Hematochezia GI Symptom: Positive for Diarrhea Stool Quality: Positive for Watery; Negative for Black, Maroon and BRB per rectum Associated Symptoms Associated Symptoms: Negative for Dysuria, Frequency and Hematuria LMP: 11/08/2021 Narrative Narrative: Presents with nausea and diarrhea that has been getting worse over the past couple days. Patient had recent surgery on her Achilles tendon. Patient states she has been unable to keep anything down. Patient and family are concerned that she is getting dehydrated because of this. Patient denies any hematemesis or coffee-ground emesis. Patient denies any melena or hematochezia. Patient denies any abdominal pain. Patient denies any urinary complaints. [facility] Medical History (Updated 11/13/21 @ 22:[address] Garry Thurman DO) Chlamydia infection GERD (gastroesophageal reflux disease) Hypothyroidism Melena Polycystic ovarian syndrome Home Medications norgestrel-ethinyl estradiol 1 ea PO DAILY 01/12/19 [History Last Taken Unknown] dicyclomine 20 mg PO TIDAC #20 capsule 10/19/20 [Rx Last Taken Unknown] desvenlafaxine 100 mg PO DAILY 10/25/20 [History Last Taken Unknown] loperamide [Imodium A-D] 2 mg PO Q6H PRN #20 tab 11/13/21 [Rx Last Taken Unknown] pantoprazole 40 mg PO DAILY 11/13/21 [History Last Taken Unknown] Allergy/AdvReac Type Severity Reaction Status Date / Time No Known Allergies Allergy Verified 11/13/21 19:28 Surgical History (Updated 11/13/21 @ 20:[address] Garry Thurman DO) History of carpal tunnel surgery Hx of Achilles tendon repair Hx of cholecystectomy Social History household members: none Smoking Status: Never smoker alcohol intake: never substance use type: does not use ROS ROS ED Constitutional Constitutional ED: Reports chills and subjective; Denies fever(s) Eyes Eyes: Denies blurry vision or change in vision ENT ENT ED: Denies rhinorrhea or sore throat Cardiovascular Cardiovascular: Denies chest pain or palpitations Respiratory/Chest Respiratory/Chest: Denies cough or dyspnea Gastrointestinal Gastrointestinal: Reports diarrhea, nausea and vomiting; Denies melena Genitourinary Genitourinary ED: Denies dysuria or hematuria Musculoskeletal Musculoskeletal: Denies back pain or neck pain Integumentary Reports rash; Denies abscess Neurologic Neurologic: Denies headache(s) or weakness Allergic/Immunologic Allergic/Immunologic ED: Denies mouth swelling or tongue swelling EXAM Physical Exam Const Vital Signs: 11/13/21 19:28 11/13/21 21:21 Temperature 97.9 F Temperature Source Temporal Pulse Rate 122 H 86 Respiratory Rate 14 16 Blood Pressure 166/96 H 131/68 H Blood Pressure Mean 119 89 Pulse Ox 98 96 Oxygen Delivery Method Room Air Room Air Positive well nourished, well developed and obese General Appearance ED: well developed and NAD Nutritional Appearance: obese HEENT Reports moist mucous membranes Neck supple and no JVD Resp normal respiratory effort and clear to auscultation bilaterally Cardio regular rate, regular rhythm and no murmurs GI normal to inspection, nondistended, normoactive bowel sounds and non-tender Palpation: soft Extremity normal to inspection General Extremety ED: Negative for edema or tenderness General Extremity: Negative for edema Neuro oriented x3, CN's II-XII intact bilaterally and no sensory deficits noted Sensorium / Orientation: alert Motor Exam: strength 5/5 throughout Psych mental status grossly normal Skin no rashes or lesions noted MDM MDM MDM Narrative Medical decision making narrative: Patient was given IV fluids and Zofran. CBC shows a mild leukocytosis of 12.2. Comprehensive metabolic profile was within normal limits. Urinalysis does not show any evidence of urinary tract infection. On reevaluation, patient states that she had a rash since before her Achilles surgery and that the rash is now spreading. Patient was given a dose of Benadryl. Patient was given a repeat dose of Zofran. Patient heart rate improved after IV fluids. Patient was given a prescription for Imodium. Patient was instructed continue her promethazine as prescribed. Patient was instructed to start with liquids and advance her diet as tolerated. Patient was instructed to follow-up with her primary care physician in 3 to 5 days. Patient and family understood and were agreeable with the plan. All questions were answered. Lab Data Attestation: I reviewed the patient's lab results. Labs: Laboratory Results - last 24 hr 11/13/21 11/13/21 11/13/21 20:20 20:20 20:41 WBC 12.2 H RBC 5.33 Hgb 14.9 Hct 46.5 MCV 87.2 MCH 28.0 MCHC 32.0 RDW Std Deviation 43.8 RDW Coeff of Ry 13.8 Plt Count 473 H MPV 9.7 Immature Gran % (Auto) 1.400 H Neut % (Auto) 58.2 Lymph % (Auto) 31.2 [place] % (Auto) 5.6 Eos % (Auto) 3.2 Baso % (Auto) 0.4 Absolute Neuts (auto) 7.1 Absolute Lymphs (auto) 3.80 Nucleated RBC % 0 Sodium 139 Potassium 3.6 Chloride 104 Carbon Dioxide 27.0 Anion Gap 8 BUN 13 Creatinine 0.90 Estim Creat Clear Calc 93.73 Est GFR (MDRD) Af Amer 100 Est GFR (MDRD) Non-Af 82 BUN/Creatinine Ratio 14.5 Glucose 89 Calcium 9.7 Total Bilirubin 0.40 AST 30 ALT 31 Alkaline Phosphatase 63 Total Protein 8.3 H Albumin 3.7 Globulin 4.6 H Albumin/Globulin Ratio 0.8 L Urine Color Yellow Urine Clarity Clear Urine pH 6.0 Ur Specific [place] 1.020 Urine Protein 15 H Urine Glucose (UA) Normal Urine Ketones Negative Urine Occult Blood 10 H Urine Nitrite Negative Urine Bilirubin Negative Urine Urobilinogen Normal Ur Leukocyte Esterase 25 H Urine RBC 0 SEEN Urine WBC 0-5 SEEN Ur Squamous Epith Cells 5-10 SEEN Urine Bacteria 1+ Urine Mucus 1+ Discharge Plan Triage Chief Complaint: Nausea/Vomiting/Diarrhea ED Provider: Garry Thurman Dx/Rx/DC Orders Clinical Impression: Nausea vomiting and diarrhea, Dermatitis, Morbid obesity with BMI of 50.0-59.9, adult Instructions: ED Vomiting and Diarrhea ... Prescriptions: New loperamide [Imodium A-D] 2 mg tablet 2 mg PO Q6H PRN (Reason: loose stool) Qty: 20 RF: 0 No Action norgestrel-ethinyl estradiol 1 EACH tablet 1 ea PO DAILY RF: 0 dicyclomine 10 MG capsule 20 mg PO TIDAC Qty: 20 RF: 0 desvenlafaxine 100 mg tablet extended release 24 hr 100 mg PO DAILY RF: 0 pantoprazole 40 mg Tablet,Delayed Release (Dr/Ec) 40 mg PO DAILY RF: 0 Referrals: LEON CANNON [Other] - 3-5 Days Disposition Disposition: Home, Self Care
[2021-11-13] MEDS: Ondansetron 4 MG/2 ML Vial IV ×2 (20:28→22:22)
[2021-11-13] MEDS: 0.9% Normal Saline 1,000 ML 1000 ML IV ×2 (20:28→22:20)
[2021-11-13 20:36] LABS: Absolute Neutrophil Count 7.1 X10^3/uL (2.0-7.7); Basophil# 0.05 X10^3/uL; Basophil% 0.4 % (0-1); Eosinophil# 0.39 X10^3/uL; Eosinophils% 3.2 % (0-5); Hematocrit 46.5 % (37-47); Hemoglobin 14.9 g/dL (12.0-15.0); Lymphocyte % 31.2 % (19-41); Mean Corpuscular Volume 87.2 fL (81-99); Mean Platelet Vol. 9.7 fl (6.2-12.0); Monocyte# 0.68 X10^3/uL; Monocyte% 5.6 % (0-10); NRBC Flagged by Analyzer 0 % (0-5); Neutrophil # 7.08 X10^3/uL (2.7-7.7); Neutrophil % 58.2 % (47-70); Platelet Count 473 K/mm3 (150-450); RBC Distribution Width CV 13.8 % (11.6-14.6); RBC Distribution Width SD 43.8 fl (35.1-43.9); Red Blood Count 5.33 M/mm3 (4.2-5.4); White Blood Count 12.2 K/mm3 (4.4-11.0)
[2021-11-13 20:48] LABS: Red Blood Cells-Urine 0 SEEN /hpf (0-5)
[2021-11-13 20:50] LABS: Color, Urine Yellow (Yellow); Glucose, Dipstick Normal (Normal); Ketone-Dipstick Negative (Negative); Leukocyte Esterase-Dipstick 25 /ul (Negative); Nitrite-Dipstick Negative (Negative); Occult Blood-Urine 10 /ul (Negative); Protein-Dipstick 15 mg/dl (Negative); Urine Bilirubin Dipstick Negative (Negative); Urine Clarity Clear (Clear); Urine Urobilinogen Normal (Normal)
[2021-11-13 20:53] LABS: ALB/GLOB Ratio 0.8 RATIO (0.9-2.4); AST(SGOT) 30 U/L (15-37); Alanine Aminotransfer ALT/SGPT 31 U/L (13-56); Albumin, Serum 3.7 g/dL (3.2-5.0); Alkaline Phosphatase 63 U/L (45-117); Anion Gap 8 (5-15); BUN 13 mg/dL (7-18); BUN/Creat Ratio 14.5 RATIO (10-20); Calcium,Total 9.7 mg/dL (8.5-10.1); Chloride 104 mmol/L (98-107); EST Glomerular Filtration Rate 82 mL/min (>60); Est Glom Filt Rate - Afr Amer 100 mL/min (>60); Estimated Creatinine Clearance 93.73 ml/min; Globulin 4.6 g/dL (2.2-4.2); Glucose 89 mg/dL (74-106); Potassium 3.6 mmol/L (3.5-5.1); Protein, Total 8.3 g/dL (6.4-8.2); Sodium Level 139 mmol/L (136-145)
[2021-11-13 21:00] LABS: Bacteria 1+ /hpf (None Seen); Squamous Epithelial Cells - UA 5-10 SEEN /hpf (5-10); White Blood Cells 0-5 SEEN /hpf (0-5)
[2021-11-13 21:01] LABS: Mucous, Urine 1+ /hpf (<or=2+)
[2021-11-13 21:21] VITALS: BP 131/68; PULSE 86; RESP 16; O2SAT 96
[2021-11-13] MEDS: DiphenhydrAMINE 50 MG/ML Syringe 25 MG IV (22:32)
[2021-11-13 23:00] VITALS: BP 124/57; PULSE 89; RESP 16; O2SAT 99
== END 2021-11-13 23:34 | disposition home or self-care (01) ==
PROVIDERS: Emergency Provider Emergency Medicine; Visit Provider Emergency Medicine
DX: R11.2 Nausea with vomiting, unspecified (principal); E66.01 Morbid (severe) obesity due to excess calories; Z68.43 Body mass index [BMI] 50.0-59.9, adult; L30.9 Dermatitis, unspecified; R10.9 Unspecified abdominal pain; R19.7 Diarrhea, unspecified; E28.2 Polycystic ovarian syndrome; K21.9 Gastro-esophageal reflux disease without esophagitis; E03.9 Hypothyroidism, unspecified; Z79.899 Other long term (current) drug therapy
CPT/HCPCS: 80053; 81001; 85025; 96361; 96374; 96375; 96376; 99283; J7030; A4216; J2405